=== PATIENT | female | born 1955 | race Caucasian/White ===

== ENCOUNTER 2021-05-15 19:03 | Inpatient (IN) | payer MEDICARE, SELFPAY ==
--- NOTE | 2021-05-15 19:56 | ADMGEN ---
This patient, Wendy Toribio, was admitted to 2nd Floor Room 207-1. Patient/family oriented to hospital policies and general routines including ID bracelet, bed and alarms, visiting hours, pain management, procedures, bathroom and other care routines, personal items, smoking policy, room service/diet, and visiting hours. Information on how to activate the Rapid Response Team has been discussed. Patient/Family are encouraged to report perceived risks to care and to ask questions if they do not understand what they are told or what they should do.
[2021-05-15 20:00] VITALS: PULSE 107; RESP 18; O2SAT 94; BMI 22.5
--- NOTE | 2021-05-15 20:15 | WPDREHABHP2 ---
HPI Date/Time 05/15/21 20:15 Narrative The patient's primary rehab impairment category is [] The etiologic diagnosis is [] weakness status post COVID pneumonia I saw this patient [id number] on [] May 15, 2021 The patient is a [] 65-year-old female with no significant past medical history that was diagnosed with COVID pneumonia after she and vaccinated patient that attended a concert and subsequent developed COVID symptoms of runny nose decreased sense of taste and smell along with some shortness of breath and presented to the emergency department and was admitted mid [facility]. The patient initially had lower O2 sats and had respiratory failure was given treatment in the hospital. Prior function was independent and lives with her currently had an episode of metabolic encephalopathy with increased confusion. Therapy was initiated at the acute care facility and the patient transferred to us from [[facility]] on [] PRIOR LEVEL OF FUNCTION: [] CURRENT LEVEL OF FUNCTION: [] confused GOALS: baseline status Our therapists will evaluate the patient and establish the goals. However, upon pre-admission screening, the expected goals were to be [INDEPENDENT] with self-care, [INDEPENDENT] with transfers, and [INDEPENDENT] with functional mobility so that the patient can return home. ESTIMATED LENGTH OF STAY: [10-14 days] POTENTIAL BARRIERS TO DISCHARGE: [Patient lives alone.] [Family needs training.] [Severity of condition.] [Architectural barriers.] ACTIVE CO-MORBIDITIES PRESENT ON ADMISSION: Active co-morbidities include []. The above co-morbidities impact the patient's function and/or functional outcome by [] Covid The patient had a negative COVID test on []. negative Review of Systems Review of Systems All systems reviewed & are unremarkable except as noted in HPI and below PMFSH Past Medical History Medical History Pneumonia due to COVID-19 virus Social History Social History Smoking status: Never smoker Alcohol intake: never Substance use: never Substance use type: does not use Spiritual care concerns: No Meds Home Medications and Allergies Home Medications Medication Instructions Recorded Confirmed Type acetaminophen [Tylenol] 650 mg PO Q4H PRN 05/15/21 05/15/21 History alprazolam [Xanax] 0.25 mg PO TID PRN 05/15/21 05/15/21 History Allergies Allergy/AdvReac Type Severity Reaction Status Date / Time No Known Allergies Allergy Verified 05/15/21 19:35 Vital Signs Vital Signs - 24 hr 05/15/21 20:00 Pulse Rate 107 H Respiratory Rate 18 Pulse Oximetry 94 Exam Const General: no acute distress Eyes General: appearance normal, both eyes and all related structures Neck Neck: supple and no JVD Thyroid: thyroid normal Resp Effort & Inspection: normal respiratory effort Auscultation: clear to auscultation bilaterally Cardio Rate: regular rate Rhythm: regular rhythm GI GI Palp: Yes Soft to palpation Skin General skin exam: normal color and no rashes or lesions noted Extrem General: normal to inspection and normal exam except as noted Psych Other: confusion Rehab Assessment and Plan Additional Plan patient admitted to rehab/ swing bed with some therapeutic modalities of PT and OT to evaluate and treat.
[2021-05-16] VITALS (7 sets, daily range): BP systolic 90–128; BP diastolic 59–86; PULSE 90–140; RESP 14–16; TEMP 36.3–36.6; O2SAT 95–99
--- NOTE | 2021-05-16 09:13 | PC.NURSE ---
up to br. gait unsteady. walker with stand by assist. has flat affect. at times words sound jumbled and then just weak. hr elevated and bp low. computational mathematician aware. fluids encouraged.
[2021-05-16 09:46] LABS: Mean Corpuscular HGB Conc 32.6 g/dL (32.0-36.0); Mean Corpuscular Hemoglobin 31.6 pg (27.0-31.0); Mean Corpuscular Volume 97.1 fL (78.0-102.0); Mean Platelet Volume 9.6 fl (9.2-11.8); Platelet Count Result 262 K/mm3 (150-420); Red Blood Count 4.43 M/mm3 (4.20-5.40); Red Cell Distribution Width 13.2 % (11.6-14.4); White Blood Count 11.2 K/mm3 (4.8-10.8)
[2021-05-16 10:15] LABS: Alanine Aminotransferase 41 U/L (14-59); Albumin Level 2.7 g/dL (3.4-5.0); Alkaline Phosphatase 83 U/L (46-116); Anion Gap 9 mmol/L (8-16); Aspartate Amino Transferase 19 U/L (15-37); Bilirubin,Total 0.5 mg/dL (0.00-1.00); Blood Urea Nitrogen 36 mg/dL (7-18); Calcium 9.1 mg/dL (8.5-10.1); Carbon Dioxide 29 mmol/L (21-32); Chloride 103 mmol/L (98-108); Estimated CRCL calculation 46 ml/min; Estimated Glomerular Filt Rate > 60; Glucose 104 mg/dL (70-99); NT Pro B Type Natriuretic Pept 108 pg/mL (0-125); Osmolality Calculated 300 mOsm/kg (285-295); Potassium 4.2 mmol/L (3.5-5.1); Sodium 141 mmol/L (136-145); Total Protein 6.7 g/dL (6.4-8.2)
[2021-05-16 10:25] LABS: Troponin I 4.2 ng/L (0.00-60.4)
--- NOTE | 2021-05-16 10:30 | PCOTNOTE ---
Per PROCUREMENT SPECIALIST, hold OT evaluation at this time secondary to low BP and high heart rate. MS
--- NOTE | 2021-05-16 11:59 | WPDPN ---
Progress Note: A&P Assessment and Plan (1) Hypotensive episode: Code(s): I95.9 - Hypotension, unspecified Status: Acute Assessment and Plan: Etiology unknown Orthostatic blood pressure ordered Will possibly need midodrine (2) Weakness: Code(s): R53.1 - Weakness Status: Acute Assessment and Plan: ? Exhibit tolerance during physical activity as evidenced by a normal fluctuation of vital signs during physical activity. ? Patient will be ability to perform required activities of daily living. ? Provide appropriate nutrition for healing and strength. ? Use appropriate to prevent falls. ? Continue physical therapy/occupational therapy. (3) COVID: Code(s): U07.1 - COVID-19 Status: Acute Assessment and Plan: Patient received remdesivir and dexamethasone at outside hospital treatment completed No respiratory distress noted at this time Subjective Date/time seen: 05/16/21 11:59 this is a 65-year-old female who presented to our swing bed after being discharged from [facility] in [place] status post positive. Patient does not have any significant past medical history. She does have a history of depression. Patient does not talk a lot most information obtained from medical records. According to medical records patient was admitted to [facility] on 05/02/2021 for management of pneumonia secondary to COVID-19. She originally needed high flow nasal cannula and was treated with dexamethasone and remdesivir. While there she did develop acute kidney injury which resolved. She continues to be fatigued and weak due to covid. Patient does not talk a lot most information obtained from medical records. According to medical records patient went to a concert where she was possibly exposed to Covid shortly afterwards she started to develop loss of taste and smell decreased p.o. intake, fever and shortness of breath. Patient continues to experience fatigue and weakness. Patient admitted in swing bed for rehabilitation due to decreased balance decreased mobility in severe limited function endurant and/or mobility. Review of Systems Review of Systems: A 14 organ system Review of Systems was performed and pertinent positives included in the HPI, otherwise remaining ROS is negative. Exam Narrative: GENERAL: This is a well-nourished, well-developed patient, in no apparent distress. Patient has a delayed response reaction HEAD: normocephalic, atraumatic. EYES: PERRL. Sclera clear/white. Vision is grossly intact. EARS: External ears normal, auditory canals clear and without drainage, TMs normal without perforation. Hearing grossly intact. NOSE: External nose normal with no obvious nasal discharge, nares without redness, no rhinorrhea. THROAT: Mucous membranes moist, posterior pharynx clear. NECK: Neck supple, non-tender without lymphadenopathy, masses or thyromegaly. CARDIOVASCULAR: Regular rate and rhythm without murmurs, gallops, or rubs. RESPIRATORY: Clear to auscultation. Breath sounds equal bilaterally. No wheezes, rales, or rhonchi. GASTROINTESTINAL: Abdomen soft, non-tender, nondistended. Bowel sounds are active. No hepato-splenomegaly, or palpable masses. No guarding. SKIN: warm, intact with no suspicious lesions or rash, good texture and turgor. NEURO: awake, alert, There were no obvious focal neurologic abnormalities. Steady gait EXTREMITIES: Normal range of motion. No edema. No calf tenderness. Negative Homans sign bilaterally. BACK: Nontender without deformity or crepitance. No flank tenderness. Objective Data Vital Signs Vital Signs: Vital Signs - 24 hr 05/15/21 20:00 05/16/21 00:00 05/16/21 09:15 Temperature 97.9 F 97.4 F L Pulse Rate 107 H 90 140 H Respiratory Rate 18 14 16 Blood Pressure 120/83 90/60 L Pulse Oximetry 94 95 98 05/16/21 10:52 Temperature 97.8 F Pulse Rate 108 H Respiratory Rate 16 Blood Pressure 110/62 Pulse Oximetry 97 Intake/Output Intak
[2021-05-16] MEDS: polyethylene glycoL 3350 17 GM POWD.PACK PO (13:31)
--- NOTE | 2021-05-16 17:27 | PC.NURSE ---
JT in to see pt
--- NOTE | 2021-05-16 18:40 | PC.NURSE ---
pt has sm bm, pt amb to bed, sitting up at bedside, pt is anxious and is unsure what to do for the rest of the night, phone in reach, pt declines crossword puzzles, tv turned on, call light in reach
[2021-05-16] MEDS: DOCUSATE SODIUM 100 MG CAPSULE PO (20:22)
[2021-05-17] VITALS: BP 120/81; PULSE 120; RESP 18; TEMP 37; O2SAT 98
[2021-05-17 07:14] VITALS: BP 135/73; PULSE 98; RESP 16; TEMP 36.6; O2SAT 96
[2021-05-17 07:15] VITALS: BP 115/94; PULSE 115; RESP 18; O2SAT 97
[2021-05-17 07:16] VITALS: BP 99/78; PULSE 130; RESP 18; O2SAT 97
[2021-05-17] MEDS: LORazepam (*CRX) 0.5 MG TABLET PO ×2 (07:31→21:14)
--- NOTE | 2021-05-17 08:12 | PCPTNOTE ---
05/17/21 - attempted to see patient at 0715 this morning, but due to abnormal vitals and affect patient was not seen. will attempt to see patient again later this morning after eating and getting her meds. SALOMON
[2021-05-17] MEDS: DOCUSATE SODIUM 100 MG CAPSULE PO ×2 (10:39→21:14)
--- NOTE | 2021-05-17 11:10 | PCOTNOTE ---
On 05/17/21, the student, [ Rayna Merida], provided care and completed [facility] documentation on this patient. I have reviewed the student's documentation and agree with the findings. MS
[2021-05-17 16:00] VITALS: BP 121/69; PULSE 120; RESP 18; TEMP 36.6; O2SAT 96
[2021-05-17] MEDS: ACETAMINOPHEN 325 MG TABLET 650 MG PO (20:59)
[2021-05-18] VITALS: BP 112/63; PULSE 119; RESP 20; TEMP 36.2; O2SAT 97
[2021-05-18 08:00] VITALS: BP 115/62; PULSE 117; RESP 20; TEMP 36.8; O2SAT 97
[2021-05-18] MEDS: DOCUSATE SODIUM 100 MG CAPSULE PO ×2 (09:17→20:16)
--- NOTE | 2021-05-18 11:41 | P.PNCROSS_ITS ---
Event Note Event Note Event Note: Chemo Toribio, of Wendy, requested that I call him. He was concerned about his and needing a taper of steroids. We discussed this and I gave him [facility] information regarding [facility] steroid use needing tapering and short term steroid use not requiring tapering. He was also concerned about his and depression. He states that she was treated over a year ago for depression. He explains that they had seen 3 different providers and tried about every medication available . He stated that she would do well but then hit a plateau. We discussed doing a depression assessment OrthoSensor. He was in favor of both interventions. Depression scale was 8/27, Left a voice message for Chemo to discuss this.
--- NOTE | 2021-05-18 13:14 | PCOTNOTE ---
On 05/18/21, the student, [Rayna Merida], provided care and completed [facility] documentation on this patient. I have reviewed the student's documentation and agree with the findings.SM
[2021-05-18 16:00] VITALS: BP 120/69; PULSE 105; RESP 20; TEMP 36.5; O2SAT 96
[2021-05-18 20:00] VITALS: BP 109/65
[2021-05-18 20:20] VITALS: BP 107/68
[2021-05-18 20:21] VITALS: BP 107/65
[2021-05-19] VITALS: BP 106/68; PULSE 99; RESP 18; TEMP 36.5; O2SAT 95
[2021-05-19 07:40] VITALS: BP 119/75; PULSE 108; RESP 18; TEMP 37; O2SAT 97
[2021-05-19 08:10] VITALS: O2SAT 97
[2021-05-19] MEDS: DOCUSATE SODIUM 100 MG CAPSULE PO (09:12)
[2021-05-19] MEDS: LORazepam (*CRX) 0.5 MG TABLET PO (09:12)
--- NOTE | 2021-05-19 11:07 | PCOTNOTE ---
On 05/19/21, the student, [Rayna Merida ], provided care and completed [facility] documentation on this patient. I have reviewed the student's documentation and agree with the findings. MS
[2021-05-19 16:00] VITALS: BP 114/67; PULSE 100; RESP 18; TEMP 36.8; O2SAT 98
[2021-05-19] MEDS: traZODone HCL 25 MG TABLET PO (20:20)
[2021-05-19 20:21] VITALS: BP 119/73; PULSE 116; RESP 20; TEMP 36.1; O2SAT 98
[2021-05-20] VITALS (8 sets, daily range): BP systolic 106–117; BP diastolic 56–75; PULSE 100–130; RESP 16–20; TEMP 36.3–37.1; O2SAT 96–100
[2021-05-20 04:53] LABS: Hematocrit 35.8 % (35.0-42.0); Hemoglobin 11.4 g/dL (11.7-13.8); Mean Corpuscular HGB Conc 31.8 g/dL (32.0-36.0); Mean Corpuscular Hemoglobin 31.4 pg (27.0-31.0); Mean Corpuscular Volume 98.6 fL (78.0-102.0); Mean Platelet Volume 10.1 fl (9.2-11.8); Platelet Count Result 143 K/mm3 (150-420); Red Blood Count 3.63 M/mm3 (4.20-5.40); Red Cell Distribution Width 13.3 % (11.6-14.4)
[2021-05-20 05:31] LABS: Anion Gap 9 mmol/L (8-16); Blood Urea Nitrogen 23 mg/dL (7-18); Calcium 8.6 mg/dL (8.5-10.1); Carbon Dioxide 27 mmol/L (21-32); Chloride 108 mmol/L (98-108); Estimated CRCL calculation 53 ml/min; Estimated Glomerular Filt Rate > 60; Glucose 88 mg/dL (70-99); Osmolality Calculated 300 mOsm/kg (285-295); Potassium 4.2 mmol/L (3.5-5.1); Sodium 144 mmol/L (136-145)
[2021-05-20] MEDS: LORazepam (*CRX) 0.5 MG TABLET PO (09:36)
--- NOTE | 2021-05-21 00:07 | PC.NURSE ---
Patient up to chair at beginning of shift, pressed her call light and was ready for bed. Patient transferred well to bed. denies dizziness. Patient refused sleep aids and stool softner at 2100, vitals signs stable, denies pain , patient resting well.
--- NOTE | 2021-05-21 07:49 | P.DS_ITS ---
DS: Admitting Diagnosis Discharge Date 05/21/2021 <EDWIN SanzC - Last Filed: 05/21/21 11:42> Admitting Diagnosis Weakness s/p COVID <EDWIN SanzC - Last Filed: 05/21/21 11:42> DS: Discharge Diagnosis Discharge Diagnosis (1) Hypotensive episode: Code(s): I95.9 - Hypotension, unspecified <EDWIN SanzC - Last Filed: 05/21/21 11:42> Status: Acute <Yuri Arroyo APN-C - Last Filed: 05/21/21 11:42> Assessment and Plan: * Etiology unknown * Orthostatic blood pressure ordered * Will possibly need midodrine 05/21/2021 resolved <EDWIN SanzC - Last Filed: 05/21/21 11:42> (2) Weakness: Code(s): R53.1 - Weakness <Yuri Arroyo EDWINC - Last Filed: 05/21/21 11:42> Status: Acute <Yuri Arroyo APN-C - Last Filed: 05/21/21 11:42> Assessment and Plan: ? Exhibit tolerance during physical activity as evidenced by a normal fluctuation of vital signs during physical activity. ? Patient will be ability to perform required activities of daily living. ? Provide appropriate nutrition for healing and strength. ? Use appropriate to prevent falls. ? Continue physical therapy/occupational therapy. 05/21/2021 Pt has done well with PT/OT and she is safe to return home <Yuri Arroyo CHIKA - Last Filed: 05/21/21 11:42> (3) COVID: Code(s): U07.1 - COVID-19 <Yuri Arroyo PAEDIATRIC THORACIC PHYSICIAN-C - Last Filed: 05/21/21 11:42> Status: Acute <CHIKA Sanz - Last Filed: 05/21/21 11:42> Assessment and Plan: * Patient received remdesivir and dexamethasone at outside hospital treatment completed * No respiratory distress noted at this time 05/21/2021 No respiratory complaints <Yuri Arroyo PAEDIATRIC THORACIC PHYSICIAN-C - Last Filed: 05/21/21 11:42> DS: Summary Hospital Course Hospital Course: Pt worked well with PT/OT and is ready to safely return home. <Yuri ArroyoKIMBERLYNZakTadeo - Last Filed: 05/21/21 11:42> Time Spent with Patient Time attestation: Total time spent providing and/or coordinating discharge services: < 30 minutes <Yuri ArroyoKIMBERLYNZakTadeo - Last Filed: 05/21/21 11:42> Exam Narrative: Pt is eager to return home <Yuri ArroyoKIMBERLYNZakTadeo - Last Filed: 05/21/21 11:42> Const: General: cooperative, healthy appearing, comfortable, no acute distress, alert, awake and Physically active <Yuri ArroyoKIMBERLYNZakTadeo - Last Filed: 05/21/21 11:42> Nutritional Appearance: average body habitus <Yuri ArroyoKIMBERLYNMukund - Last Filed: 05/21/21 11:42> Resp: Effort & Inspection: normal respiratory effort <Yuri ArroyoKIMBERLYNMukund - Last Filed: 05/21/21 11:42> Auscultation: clear to auscultation bilaterally <Yuri PrinceKIMBERLYN millerZakC - Last Filed: 05/21/21 11:42> Cardio: Rate: regular rate <Yuri Arroyo PAEDIATRIC THORACIC PHYSICIANMukund - Last Filed: 05/21/21 11:42> Heart sounds: S1 normal heart sound present and S2 normal heart sound present <Yuri ArroyoKIMBERLYNZakTadeo - Last Filed: 05/21/21 11:42> Skin: General skin exam: normal color and dry skin <Yuri ArroyoKIMBERLYNZakC - Last Filed: 05/21/21 11:42> Neuro: General: oriented to person, oriented to place and oriented to time <Yuri PrinceKIMBERLYN millerZakTadeo - Last Filed: 05/21/21 11:42> Cranial nerves: Yes CN's II-XII intact bilaterally (grossly intact) <Yuri PrinceCHIKA miller - Last Filed: 05/21/21 11:42> Cognition (Neuro): normal cognition <Yuri PrinceKIMBERLYN millerZakTadeo - Last Filed: 05/21/21 11:42> Speech: normal speech <Yuri Arroyo, PAEDIATRIC THORACIC PHYSICIAN-C - Last Filed: 05/21/21 11:42> Gait exam (Neuro): Normal
--- NOTE | 2021-05-21 07:49 | PM.DS ---
DS: Admitting Diagnosis Discharge Date 05/21/2021 <IVONE SanzNaZkC - Last Filed: 05/21/21 11:42> Admitting Diagnosis Weakness s/p COVID <IVONE SanzNMukund - Last Filed: 05/21/21 11:42> DS: Discharge Diagnosis Discharge Diagnosis (1) Hypotensive episode: Code(s): I95.9 - Hypotension, unspecified <Yuri Arroyo ELECTRICAL PROSPECTORZakC - Last Filed: 05/21/21 11:42> Status: Acute <IVONE SanzNZakC - Last Filed: 05/21/21 11:42> Assessment and Plan: Etiology unknown Orthostatic blood pressure ordered Will possibly need midodrine 05/21/2021 resolved <IVONE SanzNZakC - Last Filed: 05/21/21 11:42> (2) Weakness: Code(s): R53.1 - Weakness <Yuri Arroyo ELECTRICAL PROSPECTORMukund - Last Filed: 05/21/21 11:42> Status: Acute <EDWIN SanzC - Last Filed: 05/21/21 11:42> Assessment and Plan: ? Exhibit tolerance during physical activity as evidenced by a normal fluctuation of vital signs during physical activity. ? Patient will be ability to perform required activities of daily living. ? Provide appropriate nutrition for healing and strength. ? Use appropriate to prevent falls. ? Continue physical therapy/occupational therapy. 05/21/2021 Pt has done well with PT/OT and she is safe to return home <Yuri ArroyoKIMBERLYNMukund - Last Filed: 05/21/21 11:42> (3) COVID: Code(s): U07.1 - COVID-19 <Yuri ArroyoKIMBERLYN-C - Last Filed: 05/21/21 11:42> Status: Acute <IVONE SanzNMukund - Last Filed: 05/21/21 11:42> Assessment and Plan: Patient received remdesivir and dexamethasone at outside hospital treatment completed No respiratory distress noted at this time 05/21/2021 No respiratory complaints <Yuri ArroyoKIMBERLYNMukund - Last Filed: 05/21/21 11:42> DS: Summary Hospital Course Hospital Course: Pt worked well with PT/OT and is ready to safely return home. <Yuri Tapia CHIKA Arroyo - Last Filed: 05/21/21 11:42> Time Spent with Patient Time attestation: Total time spent providing and/or coordinating discharge services: < 30 minutes <Yuri PrinceCHIKA miller - Last Filed: 05/21/21 11:42> Exam Narrative: Pt is eager to return home <Yuri Tapia CHIKA Arroyo - Last Filed: 05/21/21 11:42> Const: General: cooperative, healthy appearing, comfortable, no acute distress, alert, awake and Physically active <Yuri PrinceKIMBERLYN millerZakTadeo - Last Filed: 05/21/21 11:42> Nutritional Appearance: average body habitus <Yuri ArroyoKIMBERLYNZakTadeo - Last Filed: 05/21/21 11:42> Resp: Effort & Inspection: normal respiratory effort <Yuri PrinceKIMBERLYN millerZakTadeo - Last Filed: 05/21/21 11:42> Auscultation: clear to auscultation bilaterally <Yuri ArroyoKIMBERLYNMukund - Last Filed: 05/21/21 11:42> Cardio: Rate: regular rate <Yuri PrinceKIMBERLYN millerZakTadeo - Last Filed: 05/21/21 11:42> Heart sounds: S1 normal heart sound present and S2 normal heart sound present <Yuri PrinceKIMBERLYN millerZakTadeo - Last Filed: 05/21/21 11:42> Skin: General skin exam: normal color and dry skin <Yuri PrinceCHIKA miller - Last Filed: 05/21/21 11:42> Neuro: General: oriented to person, oriented to place and oriented to time <Yuri Tapia KIMBERLYN ArroyoZakTadeo - Last Filed: 05/21/21 11:42> Cranial nerves: Yes CN's II-XII intact bilaterally (grossly intact) <Yuri PrinceCHIKA miller - Last Filed: 05/21/21 11:42> Cognition (Neuro): normal cognition <Yuri Tapia CHIKA Arroyo - Last Filed: 05/21/21 11:42> Speech: normal speech <CHIKA Sanz - Last Filed: 05/21/21 11:42> Gait exam (Neuro): Normal gait present <CHIKA Sanz - Last Filed: 05/21/21 11:42> Extrem: General: no pedal edema <CHIKA Sanz - Last Filed: 05/21/21 11:42> Psych: Appearance: grossly normal <CHIKA Sanz - Last Filed: 05/21/21 11:42> Mental Status: mental status grossly normal <CHIKA Sanz - Last Filed: 05/21/21 11:42> Speech and movement: Normal speech and movement present <R
[2021-05-21 08:00] VITALS: BP 122/72; BP 122/73; PULSE 104; RESP 16; TEMP 36.3; O2SAT 95
--- NOTE | 2021-05-21 12:29 | PC.NURSE ---
1200 dc to and auto. dc instructions went over with her and again with . they both verbalize an understanding.
--- NOTE | 2021-05-22 11:42 | PC.NURSE ---
Pt states she received and understood her discharge instructions. Pt has no other comments.
== END 2021-05-21 12:00 | disposition home or self-care (01) | DRG 947 ==
PROVIDERS: Nurse Practitioner; Nurse Practitioner Family; Admitting Provider Emergency Medicine; Visit Provider Emergency Medicine
DX: R53.1 Weakness (principal); U07.1 COVID-19; J12.82 Pneumonia due to coronavirus disease 2019; I95.9 Hypotension, unspecified
CPT/HCPCS: 36415; 80048; 80053; 83880; 84484; 85027; 97110; 97161; 97165; 97530; 97535; A9270

== ENCOUNTER 2021-08-21 14:00 | Outpatient (RCR) | payer MEDICARE, SELFPAY | END 2021-08-30 23:59 | disposition home or self-care (01) | LOC: CHSSENLIFE 14:00 | PROVIDERS: PCP Internal Medicine; Visit Provider Psychiatry & Neurology Psychiatry | DX: F33.1 Major depressive disorder, recurrent, moderate (principal) | CPT/HCPCS: 90792; 90834; 90837; 99213; 99214; G0463 ==

== ENCOUNTER 2021-09-21 12:00 | Outpatient (RCR) | payer MEDICARE, SELFPAY | END 2021-10-12 14:51 | disposition home or self-care (01) | LOC: CHSSENLIFE 12:00 | PROVIDERS: PCP Internal Medicine; Visit Provider Psychiatry & Neurology Psychiatry | DX: F33.1 Major depressive disorder, recurrent, moderate (principal) | CPT/HCPCS: 90837; 99213; G0463 ==

== ENCOUNTER 2022-02-09 14:00 | Outpatient (RCR) | payer MEDICARE, SELFPAY | END 2022-02-14 23:59 | disposition home or self-care (01) | LOC: CHSSENLIFE 14:00 | PROVIDERS: PCP Internal Medicine; Visit Provider Psychiatry & Neurology Psychiatry | DX: F33.41 Major depressive disorder, recurrent, in partial remission (principal); F41.9 Anxiety disorder, unspecified | CPT/HCPCS: 90837; 99213; 99214; G0463 ==

== ENCOUNTER 2022-05-18 11:30 | Outpatient (RCR) | payer MEDICARE, SELFPAY | END 2022-05-20 23:59 | disposition home or self-care (01) | LOC: CHSSENLIFE 11:30 | PROVIDERS: PCP Internal Medicine; Visit Provider Psychiatry & Neurology Psychiatry | DX: F33.41 Major depressive disorder, recurrent, in partial remission (principal); F41.9 Anxiety disorder, unspecified | CPT/HCPCS: 90834; 90837; 99213; 99214; G0463 ==

== ENCOUNTER 2022-08-28 15:30 | Outpatient (RCR) | payer MEDICARE, SELFPAY | END 2022-08-28 23:59 | disposition home or self-care (01) | LOC: CHSSENLIFE 15:30 | PROVIDERS: PCP Internal Medicine; Visit Provider Psychiatry & Neurology Psychiatry | DX: F33.41 Major depressive disorder, recurrent, in partial remission (principal); F41.9 Anxiety disorder, unspecified | CPT/HCPCS: 90832; 90837; 99213; 99214; G0463 ==

== ENCOUNTER 2022-09-13 12:35 | Outpatient (RCR) | payer MEDICARE, SELFPAY | END 2022-10-11 14:43 | disposition home or self-care (01) | LOC: CHSSENLIFE 12:35 | PROVIDERS: PCP Internal Medicine; Visit Provider Psychiatry & Neurology Psychiatry | DX: F33.41 Major depressive disorder, recurrent, in partial remission (principal); F41.9 Anxiety disorder, unspecified | CPT/HCPCS: 99213; G0463 ==

== ENCOUNTER 2024-08-17 13:25 | Emergency (ER) | payer MEDICARE, SELFPAY ==
[2024-08-17] VITALS (16 sets, daily range): BP systolic 85–124; BP diastolic 48–77; PULSE 70–85; RESP 10–18; TEMP 36.6–36.7; O2SAT 89–100
--- NOTE | ~2024-08-17 | XR_ITS ---
EXAMINATION: XR chest 1V portable 08/17/2024 14:33 INDICATION: Hypotension PROCEDURE: AP portable chest COMPARISON: 08/19/2015 FINDINGS: The lungs are clear. The cardiomediastinal silhouette is within normal limits. There are no pleural effusions. There is no pneumothorax suspected. IMPRESSION: 1: NO ACUTE CARDIOPULMONARY DISEASE. Reviewed, dictated and finalized at location B. TING DIRECTOR
--- NOTE | 2024-08-17 14:00 | ECG_ITS ---
Test Date: 2024-08-17 14:26:20 Measurements Intervals [place] Rate: 72 P: 67 ME: 143 QRS: 67 QRSD: 77 T: 56 QT: 378 QTc: 415 Interpretive Statements SINUS RHYTHM LOW QRS VOLTAGE IN PRECORDIAL LEADS [QRS DEFLECTION < 1.0 mV IN CHEST LEADS] No previous ECG available for comparison Electronically Signed On 08-17-2024 14:32:06 JAPANESE INTERPRETER by Rocky Emerson M.D.
[2024-08-17] MEDS: SODIUM CHLORIDE 0.9% IV 1,000 ML 999 ML (14:02)
[2024-08-17 14:25] LABS: Basophils Absolute Auto 0.05 K/mm3 (0.00-0.10); Basophils Percent Auto 0.8 % (0.0-1.0); Eosinophils Absolute Auto 0.08 K/mm3 (0.02-0.50); Eosinophils Percent Auto 1.3 % (1.0-6.0); Hematocrit 39.6 % (35.0-42.0); Hemoglobin 12.9 g/dL (11.7-13.8); Immature Granulocyte Absolute 0.01 K/mm3 (0.00-0.00); Immature Granulocyte Percent A 0.2 % (0.0-0.0); Lymphocytes Absolute Auto 1.21 K/mm3 (1.10-4.50); Lymphocytes Percent Auto 20.3 % (18.0-42.0); Mean Corpuscular HGB Conc 32.6 g/dL (32-36); Mean Corpuscular Hemoglobin 31.4 pg (27.0-31.0); Mean Corpuscular Volume 96.4 fL (78.0-102.0); Mean Platelet Volume 10.8 fl (9.2-11.8); Monocytes Absolute Auto 0.44 K/mm3 (0.10-0.90); Monocytes Percent Auto 7.4 % (2.0-11.0); Neutrophils Absolute Auto 4.16 K/mm3 (1.70-7.20); Platelet Count Result 184 K/mm3 (150-420); Red Blood Count 4.11 M/mm3 (4.20-5.40); Red Cell Distribution Width 12.6 % (11.6-14.4)
--- NOTE | 2024-08-17 14:31 | PC.NURSE ---
Pt resting in bed in room. Denies needs at this time. Call light within reach.
[2024-08-17 14:47] LABS: Alanine Aminotransferase 14 U/L (14-59); Alkaline Phosphatase 82 U/L (46-116); Anion Gap 11 mmol/L (4-12); Aspartate Amino Transferase 23 U/L (15-37); Bilirubin,Total 0.6 mg/dL (0.00-1.00); Blood Urea Nitrogen 21 mg/dL (7-18); Calcium 9.1 mg/dL (8.5-10.1); Carbon Dioxide 24 mmol/L (21-32); Chloride 108 mmol/L (98-108); Estimated CRCL calculation 39 ml/min; Estimated Glomerular Filt Rate 53; Glucose 132 mg/dL (70-99); NT Pro B Type Natriuretic Pept 90 pg/mL (0-125); Osmolality Calculated 301 mOsm/kg (285-295); Potassium 4.3 mmol/L (3.5-5.1); Sodium 143 mmol/L (136-145); Total Protein 6.1 g/dL (6.4-8.2)
[2024-08-17 14:49] LABS: Troponin I < 4.0 ng/L (0.00-60.4)
[2024-08-17 15:14] LABS: Add Urine Microscopic? YES; Appearance Urine Sl Cloudy (Clear); Bacteria Urine 2+ /hpf; Bilirubin Urine Negative (Negative); Blood Urine Trace-intact (Negative); Color Urine Light Yellow (Yellow); Glucose Urine UA Negative (Negative); Ketones Urine Trace (Negative); Leukocyte Esterase Ur 2+ LEU/UL (Negative); Nitrate Urine Positive (Negative); Protein Urine Trace (Negative); RBC Urine 0-2 /hpf (0-2); Squamous Epithelial Cell Urine Few /hpf (Few); Urobilinogen Urine 0.2 mg/dL (0.2-1.0); pH Urine 6.5 (5.0-8.0)
--- NOTE | 2024-08-17 15:23 | ED_ITS ---
HPI - Weakness General Chief complaint: Weakness Stated complaint: Passed Out Time Seen by Provider: 08/17/24 13:46 Source: patient Mode of arrival: ambulatory Limitations: no limitations History of Present Illness HPI Narrative: patient is 68-year-old female with significant past medical history that presents today with high but his chin. Patient apparently was sitting at her table getting ready to eat and having a very hit and said there and told her family she has passed and she did passed. Past surgical site and is slightly call her left side. So she did have syncope she did not hit her head however. They took her blood pressure after her she had the syncope was 77 over 45. She currently is asymptomatic just feels some weakness. She has had low blood pressure in the past. MD Complaint: generalized weakness Onset (ago): hour(s) Duration: constant Location: generalized Migration: none Severity: moderate Severity scale (1-10): 4 Quality: numbness and crushing Relieving factors: rest, movement and exertion Exacerbating factors: rest Associated symptoms: denies other symptoms Related Data Home Medications ?Medication ?Instructions ?Recorded ?Confirmed ?Last Taken ?Type acetaminophen 325 mg tablet 650 mg PO Q4H PRN Fever Or Pain 05/15/21 05/15/21 Unknown History (Tylenol) alprazolam 0.25 mg tablet (Xanax) 0.25 mg PO TID PRN Anxiety 05/15/21 05/15/21 Unknown History Allergies Allergy/AdvReac Type Severity Reaction Status Date / Time No Known Allergies Allergy Verified 05/15/21 19:35 Review of Systems 2 Review of Systems: All systems reviewed & are unremarkable except as noted in HPI and below Constitutional: Constitutional: Reports no additional constitutional complaints Eyes: Eyes: Reports no additional eye complaints ENT: Reports system reviewed and no additional complaints, except as documented Cardiovascular: Cardiovascular: Reports no additional cardiovascular complaints Respiratory: Respiratory: Reports no additional respiratory complaints Gastrointestinal: Gastrointestinal: Reports no additional gastrointestinal complaints Genitourinary: Genitourinary: Reports no additional female genitourinary complaints Musculoskeletal: Musculoskeletal: Reports no additional musculoskeletal complaints Integumentary/Breasts: Skin/Breast: Reports system reviewed and no additional complaints, except as docu Neurologic: Reports system reviewed and no additional complaints, except as documented Psychiatric: Psychiatric: Reports no additional psychiatric complaints Endocrine: Endocrine: Reports no additional endocrine complaints Allergic/Immunologic: Allergic/Immunologic: Reports no additional allergic/immunologic complaints [facility] Past Medical History Medical History Pneumonia due to COVID-19 virus Family History Family History Other Family history non-contributory Social History Social History Smoking status: Never smoker Alcohol intake: never Substance use: never Substance use type: does not use Spiritual care concerns: No Exam 2 Const: General: healthy appearing Nutritional Appearance: well nourished Orientation/consciousness: patient oriented x3 HENMT: Head: normal to inspection Ears: external ears normal F cristobal/Nose/Sinus: Normal external nose present Face and sinus: normal facial exam Mouth: Yes Normal oral and palatal mucosa present Eyes: Conjunctivae: conjunctivae normal Pupils: Equal, round and reactive pupils present EOM: EOMs intact bilaterally Direct Ophthalmoscopy: no photophobia Neck: Neck: normal visual inspection Chest: Chest palpation & inspection: normal inspection of the chest Resp: Effort & Inspection: normal respiratory effort Auscultation: clear to auscultation bilaterally Cardio: Rate: regular rate Rhythm: regular rhythm GI: GI Palp: Yes Soft to palpation : General: Yes bladder normal to palpation Back/Spine/Pelvis: Back: no CVA tenderness Skin: General skin exam: normal color Rashes: no rashes Wounds: no wounds Neuro: General: patient oriented x3 Cranial nerves: Yes Nystagmus not present Speech: normal speech Extrem: General: normal to inspection Psych: Mental Status: mental status grossly normal Affect: normal affect Attitude: cooperative Course Vital Signs Vital signs: Vital Signs Temperature 97.8 F 08/17/24 13:35 Pulse Rate 75 08/17/24 13:35 Respiratory Rate 18 08/17/24 13:35 Blood Pressure 85/64 L 08/17/24 13:35 Pulse Oximetry 100 08/17/24 13:35 Oxygen Delivery Room Air 08/17/24 13:35 Temperature 97.8 F 08/17/24 13:35 Pulse Rate 83 08/17/24 16:34 Respiratory Rate 10 L 08/17/24 15:45 Blood Pressure 102/54 L 08/17/24 16:30 Pulse Oximetry 100 08/17/24 16:30 Oxygen Delivery Room Air 08/17/24 13:35 MDM - Weakness MDM Narrative Medical decision making narrative: Patient definitely has hypotension and was talking to the family he she has not had much water to drink at all for the last week and she is not eating very much as well either. She has no hooks a dehydrated and not eating and having any salt intake. Will rehydrate her with fluids and ensure she is hydrated. Emily check her blood work as well. Differential Diagnosis Differential diagnosis: Likely dehydration Medical Records Attestation: I reviewed the patient's medical records. Lab Data Attestation: I reviewed the patient's lab results. 08/17/24 14:20 08/17/24 14:20 Labs: Lab Results 08/17/24 08/17/24 Range/Units 14:00 14:20 WBC 6.0 (4.8-10.8) K/mm3 RBC 4.11 L (4.20-5.40) M/mm3 Hgb 12.9 (11.7-13.8) g/dL Hct 39.6 (35.0-42.0) % MCV 96.4 (78.0-102.0) fL MCH 31.4 H (27.0-31.0) pg MCHC 32.6 (32-36) g/dL RDW 12.6 (11.6-14.4) % Plt Count 184 (150-420) K/mm3 MPV 10.8 (9.2-11.8) fl Immature Gran % (Auto) 0.2 H (0.0-0.0) % Neut % (Auto) 70.0 (50.0-70.0) % Lymph % (Auto) 20.3 (18.0-42.0) % Greer % (Auto) 7.4 (2.0-11.0) % Eos % (Auto) 1.3 (1.0-6.0) % Baso % (Auto) 0.8 (0.0-1.0) % Lymph # (Auto) 1.21 (1.10-4.50) K/mm3 Greer # (Auto) 0.44 (0.10-0.90) K/mm3 Eos # (Auto) 0.08 (0.02-0.50) K/mm3 Baso # (Auto) 0.05 (0.00-0.10) K/mm3 Abs Immat Gran (auto) 0.01 H (0.00-0.00) K/mm3 Absolute Neuts (auto) 4.16 (1.70-7.20) K/mm3 Absolute Nucleated RBC 0.00 (0.00-0.00) K/mm3 Nucleated RBC % 0.0 (0-0.0) % Sodium 143 (136-145) mmol/L Potassium 4.3 (3.5-5.1) mmol/L Chloride 108 (98-108) mmol/L Carbon Dioxide 24 (21-32) mmol/L Anion Gap 11 (4-12) mmol/L BUN 21 H (7-18) mg/dL Creatinine 1.03 H (0.55-1.02) mg/dL Estim Creat Clear Calc 39 ml/min Estimated GFR 53 L (59 - ) Glucose 132 H (70-99) mg/dL Calculated Osmolality 301 H (285-295) mOsm/kg Calcium 9.1 (8.5-10.1) mg/dL Total Bilirubin 0.6 (0.00-1.00) mg/dL AST 23 (15-37) U/L ALT 14 (14-59) U/L Alkaline Phosphatase 82 (46-116) U/L Troponin I < 4.0 (0.00-60.4) ng/L NT-Pro-B Natriuret Pep 90 (0-125) pg/mL Total Protein 6.1 L (6.4-8.2) g/dL Albumin 3.0 L (3.4-5.0) g/dL Urine Color Light yellow (Yellow) Urine Appearance Sl cloudy A (Clear) Urine pH 6.5 (5.0-8.0) Ur Specific [place]ity 1.020 (1.010-1.020) Urine Protein Trace H (Negative) Urine Glucose (UA) Negative (Negative) Urine Ketones Trace H (Negative) Ur Blood (Man) Trace-intact H (Negative) Urine Nitrate Positive H (Negative) Urine Bilirubin Negative (Negative) Urine Urobilinogen 0.2 (0.2-1.0) mg/dL Leukocyte Esterase Rfl 2+ H (Negative) YANELY/UL Urine RBC 0-2 (0-2) /hpf Urine WBC 10-15 H (0-3) /hpf Ur Squamous Epith Cells Few (Few) /hpf Urine Bacteria 2+ H (None) /hpf Discharge Plan Discharge Clinical Impression: Acute hypotension, Dehydration Patient Disposition: Home, Self-Care Condition: Stable Instructions: Dehydration (ED), Weakness (ED) Additional Instructions: Need to stay well hydrated and drink plenty of fluids. Also eat more food and stay in good health. Patient Language: Malawian Prescriptions: No Action acetaminophen [Tylenol] 325 mg Tablet 650 mg PO Q4H PRN (Reason: Fever Or Pain) alprazolam [Xanax] 0.25 mg Tablet 0.25 mg PO TID PRN (Reason: Anxiety) Follow-up/Referrals: Edgar Loyd MD [Primary Care Provider] - Time of Disposition: 16:46
[2024-08-17] MEDS: SODIUM CHLORIDE 0.9% IV 1,000 ML 999 ML IV CONT (15:42)
--- NOTE | 2024-08-17 16:32 | PC.NURSE ---
Pt resting comfortably in room. Family at bedside. Denies needs.
--- NOTE | 2024-08-19 14:32 | PC.NURSE ---
PRELIMINARY URINE CULTURE RESULTS: ISOLATE 1: GREATER THAN 100,000 CFU/ML OF GRAM NEGATIVE BACILLI ISOLATED. DR. ESPOSITO NOTIFIED; HE ORDERS CIPRO 250MG CIPRO TABLETS; TAKE 1 TABLET TWICE A DAY FOR 5 DAYS, #10; NO REFILLS. SPOKE WITH PT, SHE IS AWARE OF PLAN OF CARE AND RX WAS CALLED INTO [facility] IN [place] PT REQUESTED.
--- NOTE | 2024-08-20 14:27 | PC.NURSE ---
final urine culture reviewed. >100,000 e coli isolated. pt prescribed cipro. report shows sensitivity to cipro. no change inplan of care
== END 2024-08-17 17:09 | disposition home or self-care (01) ==
PROVIDERS: Emergency Provider Family Medicine; PCP Internal Medicine
DX: I95.9 Hypotension, unspecified (principal); E86.0 Dehydration
CPT/HCPCS: 36415; 71045; 80053; 81001; 83880; 84484; 85025; 87077; 87086; 87088; 87186; 93005; 96360; 96361; 96366; 99284; J7030